=== PATIENT | male | born 1950 | race African-American/Black ===

== ENCOUNTER 2017-09-06 22:15 | Inpatient (IN) | payer MEDICARE, OTHER, MEDICAID ==
[~2017-09-06] VITALS: Ht 182.9 cm; Wt 69.4 kg
[~2017-09-06 22:15] MED LIST: BISO5TAB13 PO; CINA30 PO; DIGO250T4 PO; LOSA25TA3 PO; WARF4TAB39 PO
[2017-09-06 22:30] VITALS: BP 137/80
[2017-09-06 23:00] VITALS: BP 137/80
[2017-09-06] MEDS ORDERED: DEXTROSE 50% WATER 50ML SYRINGE IV PRN (23:00)
[2017-09-06] MEDS ORDERED: NITROGLYCERIN 0.4MG TABLET SL SL PRN (23:00)
[2017-09-06] MEDS ORDERED: NICARDIPINE 100 MG in SODIUM CHLORIDE 0.9% 60 ML IV PRN (23:00)
[2017-09-06] MEDS ORDERED: IPRATROPIUM/ALBUTEROL 0.5-3(2.5)MG/3ML NEB HHN PRN (23:00)
[2017-09-06] MEDS ORDERED: NA PHOS,M-B/NA PHOS,DI-BA ENEMA 118ML PR PRN (23:00)
[2017-09-07] MEDS: DEXAMETHASONE 4MG/ML 1ML VIAL IV SCH ×4 (00:40→17:47)
[2017-09-07] MEDS: BLOOD SUGAR DIAGNOSTIC STRIP TEST SCH ×4 (00:58→17:29)
[2017-09-07] MEDS: INSULIN LISPRO 100 UNITS/ML SUBCUT SCH ×4 (01:00→17:29)
[2017-09-07] MEDS ORDERED: BLOOD SUGAR DIAGNOSTIC STRIP TEST SCH (06:30)
[2017-09-07 06:42] LABS: HEMATOCRIT. 27.9 % (42.0-52.0); HEMOGLOBIN. 9.2 g/dL (14.0-18.0); MEAN CORPUSCULAR HEMOGLOBIN 30.8 pg (28.0-32.0); MEAN CORPUSCULAR VOLUME 92.9 fL (80.0-94.0); MEAN PLATELET VOLUME 10.7 fl (7.4-10.4); PLATELET 243 x1000/uL (130-400); RED CELL DISTRIBUTION WIDTH 15.4 % (11.6-14.6)
[2017-09-07] MEDS: DILTIAZEM HCL 60MG TABLET PO SCH ×3 (07:14→22:00)
[2017-09-07] MEDS: PHENYTOIN SODIUM 100MG/2ML VIAL IV SCH ×3 (07:16→21:58)
[2017-09-07 07:20] LABS: CARBON DIOXIDE 24 mEq/L (21-32); CHLORIDE 101 mEq/L (98-107); PREALBUMIN 29.3 mg/dL (20.0-40.0)
[2017-09-07 08:00] VITALS: BP 116/65
[2017-09-07] MEDS: FAMOTIDINE 20MG/2ML VIAL IV SCH (08:52)
[2017-09-07] MEDS ORDERED: LEVETIRACETAM 500 MG in SODIUM CHLORIDE 0.9% 100 ML IV SCH (09:00)
[2017-09-07] MEDS ORDERED: INSULIN LISPRO 100 UNITS/ML SUBCUT SCH (09:00)
[2017-09-07 20:00] VITALS: BP 114/50
[2017-09-07 20:22] LABS: PLATELET ESTIMATE NORMAL
[2017-09-07] MEDS: CHLORPROMAZINE HCL 25MG/1ML AMP IM PRN (20:53)
[2017-09-07] MEDS ORDERED: VANCOMYCIN 750 MG PREMIX 150 ML IV SCH (21:00)
[2017-09-07] MEDS: LEVETIRACETAM 500MG PREMIX 100 ML IV SCH (21:57)
[2017-09-07] MEDS: ATORVASTATIN CALCIUM 20MG TABLET PO SCH (21:58)
[2017-09-07] MEDS: ASCORBIC ACID 250 MG TABLET PO SCH (21:58)
[2017-09-08] MEDS: DEXAMETHASONE 4MG/ML 1ML VIAL IV SCH ×2 (00:28→06:31)
[2017-09-08] MEDS: BLOOD SUGAR DIAGNOSTIC STRIP TEST SCH ×4 (00:28→17:54)
[2017-09-08] MEDS: DILTIAZEM HCL 60MG TABLET PO SCH ×4 (06:00→17:44)
[2017-09-08] MEDS: INSULIN LISPRO 100 UNITS/ML SUBCUT SCH ×4 (06:00→18:00)
[2017-09-08] MEDS: PHENYTOIN SODIUM 100MG/2ML VIAL IV SCH (06:31)
[2017-09-08 08:00] VITALS: BP 108/48
[2017-09-08] MEDS: ASCORBIC ACID 250 MG TABLET PO SCH ×2 (08:12→21:21)
[2017-09-08] MEDS: LEVETIRACETAM 500MG PREMIX 100 ML IV SCH (08:12)
[2017-09-08] MEDS: ZINC SULFATE 220 MG ( 50 ) CAPSULE PO SCH (08:12)
[2017-09-08] MEDS: FAMOTIDINE 20MG/2ML VIAL IV SCH (08:12)
[2017-09-08 08:50] LABS: INR 1.2; PROTHROMBIN TIME 12.1 sec (9.4-11.6)
[2017-09-08] MEDS: ACETAMINOPHEN 325MG TABLET PO PRN (09:51)
[2017-09-08] MEDS: ONDANSETRON HCL 4MG/2ML VIAL IV PRN (10:38)
[2017-09-08 11:00] VITALS: BP 118/88
[2017-09-08] MEDS ORDERED: BISACODYL 10MG SUPP PR NR (11:46)
[2017-09-08 11:57] LABS: HEMATOCRIT. 26.8 % (42.0-52.0); HEMOGLOBIN. 8.6 g/dL (14.0-18.0); MEAN CORPUSCULAR HEMOGLOBIN 30.8 pg (28.0-32.0); MEAN CORPUSCULAR VOLUME 95.7 fL (80.0-94.0); MEAN PLATELET VOLUME 10.6 fl (7.4-10.4); PLATELET 233 x1000/uL (130-400); RED CELL DISTRIBUTION WIDTH 15.4 % (11.6-14.6)
[2017-09-08 12:16] LABS: AMYLASE 115 IU/L (25-115); CARBON DIOXIDE 23 mEq/L (21-32); CHLORIDE 104 mEq/L (98-107); PHOSPHORUS 4.7 mg/dL (2.5-4.9); TOTAL IRON BINDING CAPACITY 218 ug/dL (250-450)
[2017-09-08 12:54] LABS: NUCLEATED RED BLOOD CELLS 3 /100 WBC; PLATELET ESTIMATE NORMAL
[2017-09-08] MEDS: DEXAMETHASONE 2MG TABLET PO SCH ×2 (13:42→17:44)
[2017-09-08 16:32] LABS: FOLIC ACID (FOLATE) SERUM 3.4 ng/mL (>5.38)
[2017-09-08] MEDS: PHENYTOIN SODIUM EXTENDED 100MG CAPSULE PO SCH ×2 (17:43→21:21)
[2017-09-08] MEDS ORDERED: WARFARIN SODIUM 3MG TABLET PO SCH (18:00)
[2017-09-08 20:58] VITALS: BP 109/40
[2017-09-08 21:05] LABS: CLARITY URINE CLEAR (CLEAR); COLOR URINE YELLOW (YELLOW); GLUCOSE URINE NEGATIVE (NEGATIVE); KETONES URINE TRACE (NEGATIVE); LEUKOCYTE ESTERASE URINE NEGATIVE (NEGATIVE); NITRITE URINE NEGATIVE (NEGATIVE); OCCULT BLOOD URINE 1+ (NEGATIVE); PROTEIN URINE 1+ (NEGATIVE); SPECIFIC GRAVITY URINE 1.016 (1.005-1.030); UROBILINOGEN URINE 0.2 E.U./dL (0.2-1.0)
[2017-09-08] MEDS: ATORVASTATIN CALCIUM 20MG TABLET PO SCH (21:21)
[2017-09-08] MEDS: EPOETIN ALFA 4000UNITS/ML VIAL SUBCUT SCH (21:22)
[2017-09-08] MEDS: LEVETIRACETAM 500MG TABLET PO SCH (21:22)
[2017-09-09] MEDS: BLOOD SUGAR DIAGNOSTIC STRIP TEST SCH ×4 (00:38→17:29)
[2017-09-09] MEDS: DEXAMETHASONE 2MG TABLET PO SCH ×2 (00:39→06:27)
[2017-09-09] MEDS: INSULIN LISPRO 100 UNITS/ML SUBCUT SCH ×4 (00:45→17:29)
[2017-09-09] MEDS: CHLORPROMAZINE HCL 25MG/1ML AMP IM PRN (00:49)
[2017-09-09] MEDS: DILTIAZEM HCL 60MG TABLET PO SCH ×4 (06:00→17:29)
[2017-09-09] MEDS: PHENYTOIN SODIUM EXTENDED 100MG CAPSULE PO SCH (06:27)
[2017-09-09 06:40] LABS: INR 1.2; PROTHROMBIN TIME 12.5 sec (9.4-11.6)
[2017-09-09 07:57] VITALS: BP 103/43
[2017-09-09] MEDS: LEVETIRACETAM 500MG TABLET PO SCH (08:42)
[2017-09-09] MEDS: FOLIC ACID 1MG TABLET PO SCH (08:42)
[2017-09-09] MEDS: ASCORBIC ACID 250 MG TABLET PO SCH ×2 (08:42→21:03)
[2017-09-09] MEDS: FAMOTIDINE 20MG/2ML VIAL IV SCH (08:42)
[2017-09-09] MEDS: ZINC SULFATE 220 MG ( 50 ) CAPSULE PO SCH (08:42)
[2017-09-09] MEDS ORDERED: FOLIC ACID 1MG TABLET PO SCH (11:30)
[2017-09-09] MEDS: DEXAMETHASONE 4MG/ML 1ML VIAL IV SCH ×2 (12:49→18:07)
[2017-09-09] MEDS: ONDANSETRON HCL 4MG/2ML VIAL IV PRN (13:42)
[2017-09-09 20:00] VITALS: BP 124/60
[2017-09-09] MEDS: ATORVASTATIN CALCIUM 20MG TABLET PO SCH (21:02)
[2017-09-09] MEDS: LEVETIRACETAM 250MG TABLET PO SCH (21:03)
[2017-09-09] MEDS: HEPARIN 5000 UNITS/ML VIAL SUBCUT SCH (21:03)
[2017-09-10] MEDS: BLOOD SUGAR DIAGNOSTIC STRIP TEST SCH ×4 (00:17→17:24)
[2017-09-10] MEDS: DEXAMETHASONE 4MG/ML 1ML VIAL IV SCH ×4 (00:17→17:24)
[2017-09-10] MEDS: INSULIN LISPRO 100 UNITS/ML SUBCUT SCH ×4 (00:27→17:30)
[2017-09-10] MEDS: DILTIAZEM HCL 60MG TABLET PO SCH ×3 (06:00→12:28)
[2017-09-10] MEDS: CHLORPROMAZINE HCL 25MG/1ML AMP IM PRN ×3 (06:46→21:57)
[2017-09-10 08:00] VITALS: BP 104/53
[2017-09-10] MEDS: ACETAMINOPHEN 325MG TABLET PO PRN (08:46)
[2017-09-10] MEDS: FAMOTIDINE 20MG/2ML VIAL IV SCH (08:47)
[2017-09-10] MEDS: LEVETIRACETAM 250MG TABLET PO SCH (08:47)
[2017-09-10] MEDS: ASCORBIC ACID 250 MG TABLET PO SCH (08:47)
[2017-09-10] MEDS: HEPARIN 5000 UNITS/ML VIAL SUBCUT SCH (08:47)
[2017-09-10] MEDS: ZINC SULFATE 220 MG ( 50 ) CAPSULE PO SCH (08:47)
[2017-09-10] MEDS: FOLIC ACID 1MG TABLET PO SCH (08:47)
[2017-09-10] MEDS ORDERED: BISACODYL 10MG SUPP PR NR ×2 (15:45→20:00)
[2017-09-10] MEDS: LACTULOSE 20G/30ML UDC PO SCH ×3 (16:03→21:00)
[2017-09-10] MEDS: LIDOCAINE 5% PATCH TOP SCH (16:04)
[2017-09-10 16:16] LABS: HEMATOCRIT. 28.9 % (42.0-52.0); HEMOGLOBIN. 9.4 g/dL (14.0-18.0); MEAN CORPUSCULAR HEMOGLOBIN 30.7 pg (28.0-32.0); PLATELET 238 x1000/uL (130-400); RED BLOOD CELL COUNT 3.04 mill/uL (4.7-6.1); RED CELL DISTRIBUTION WIDTH 15.4 % (11.6-14.6)
[2017-09-10 17:04] LABS: NUCLEATED RED BLOOD CELLS 5 /100 WBC; PLATELET ESTIMATE NORMAL
[2017-09-10] MEDS ORDERED: METHYL SALICYLATE/MENTHOL CREAM 85GM TOP PRN (18:00)
[2017-09-10 20:00] VITALS: BP 146/84
[2017-09-10] MEDS ORDERED: DILTIAZEM HCL 60MG TABLET PO SCH (22:00)
[2017-09-10] MEDS: DILTIAZEM HCL 30MG TABLET PO SCH (22:00)
[2017-09-11] MEDS: ATORVASTATIN CALCIUM 20MG TABLET PO SCH ×2 (00:53→20:49)
[2017-09-11] MEDS: ASCORBIC ACID 250 MG TABLET PO SCH ×3 (00:53→20:49)
[2017-09-11] MEDS: LEVETIRACETAM 250MG TABLET PO SCH ×3 (00:53→20:49)
[2017-09-11] MEDS: DEXAMETHASONE 4MG/ML 1ML VIAL IV SCH ×5 (00:55→23:26)
[2017-09-11] MEDS: INSULIN LISPRO 100 UNITS/ML SUBCUT SCH ×5 (01:05→23:25)
[2017-09-11] MEDS: HEPARIN 5000 UNITS/ML VIAL SUBCUT SCH ×3 (05:31→20:50)
[2017-09-11] MEDS: DILTIAZEM HCL 30MG TABLET PO SCH ×3 (06:00→21:49)
[2017-09-11] MEDS: BLOOD SUGAR DIAGNOSTIC STRIP TEST SCH ×5 (06:49→23:25)
[2017-09-11 07:28] LABS: HEMOGLOBIN. 9.1 g/dL (14.0-18.0); MEAN CORPUSCULAR HEMOGLOBIN 31.9 pg (28.0-32.0); MEAN CORPUSCULAR VOLUME 95.2 fL (80.0-94.0); MEAN PLATELET VOLUME 10.3 fl (7.4-10.4); PLATELET 233 x1000/uL (130-400); RED BLOOD CELL COUNT 2.84 mill/uL (4.7-6.1); RED CELL DISTRIBUTION WIDTH 15.5 % (11.6-14.6)
[2017-09-11 08:29] VITALS: BP 111/53
[2017-09-11] MEDS: ZINC SULFATE 220 MG ( 50 ) CAPSULE PO SCH (08:29)
[2017-09-11] MEDS: FAMOTIDINE 20MG/2ML VIAL IV SCH (08:29)
[2017-09-11] MEDS: FOLIC ACID 1MG TABLET PO SCH (08:29)
[2017-09-11 08:35] LABS: T4 FREE 0.55 ng/dL (0.76-1.46)
[2017-09-11] MEDS: LIDOCAINE 5% PATCH TOP SCH (09:44)
[2017-09-11 13:00] VITALS: BP 119/63
[2017-09-11] MEDS: LACTULOSE 20G/30ML UDC PO SCH ×2 (15:00→20:49)
[2017-09-11 15:37] LABS: PLATELET ESTIMATE NORMAL
[2017-09-11 20:00] VITALS: BP 127/61
[2017-09-11] MEDS: EPOETIN ALFA 4000UNITS/ML VIAL SUBCUT SCH (20:50)
[2017-09-12] MEDS: BLOOD SUGAR DIAGNOSTIC STRIP TEST SCH (05:32)
[2017-09-12] MEDS: INSULIN LISPRO 100 UNITS/ML SUBCUT SCH (05:32)
[2017-09-12] MEDS: DEXAMETHASONE 4MG/ML 1ML VIAL IV SCH (06:05)
[2017-09-12] MEDS: DILTIAZEM HCL 30MG TABLET PO SCH (06:06)
[2017-09-12] MEDS: CHLORPROMAZINE HCL 25MG/1ML AMP IM PRN (06:06)
[2017-09-12] MEDS: LACTULOSE 20G/30ML UDC PO SCH (07:29)
[2017-09-12 08:00] VITALS: BP_SYST 100; BP_SYST 123; BP_DIAS 45; BP_DIAS 62
[2017-09-12 08:07] LABS: T4 FREE 0.56 ng/dL (0.76-1.46)
[2017-09-12] MEDS: HEPARIN 5000 UNITS/ML VIAL SUBCUT SCH (09:41)
[2017-09-12] MEDS: LEVETIRACETAM 250MG TABLET PO SCH (09:41)
[2017-09-12] MEDS: ZINC SULFATE 220 MG ( 50 ) CAPSULE PO SCH (09:42)
[2017-09-12] MEDS: FAMOTIDINE 20MG/2ML VIAL IV SCH (09:42)
[2017-09-12] MEDS: ASCORBIC ACID 250 MG TABLET PO SCH (09:42)
[2017-09-12] MEDS: FOLIC ACID 1MG TABLET PO SCH (09:42)
[2017-09-12] MEDS: LIDOCAINE 5% PATCH TOP SCH (09:44)
[2017-09-12] MEDS ORDERED: DEXAMETHASONE 4MG/ML 1ML VIAL IV SCH (12:00)
[2017-09-12] MEDS ORDERED: AMIODARONE HCL 150 MG in DEXT 5% WATER 100 ML IV SCH (12:15)
[2017-09-12] MEDS ORDERED: AMIODARONE HCL 900 MG in DEXT 5% WATER 500 ML IV SCH (12:15)
[2017-09-12 13:07] LABS: HEMATOCRIT. 30.7 % (42.0-52.0); HEMOGLOBIN. 9.9 g/dL (14.0-18.0); MEAN CORPUSCULAR VOLUME 96.1 fL (80.0-94.0); MEAN PLATELET VOLUME 10.6 fl (7.4-10.4); PLATELET 239 x1000/uL (130-400); RED BLOOD CELL COUNT 3.19 mill/uL (4.7-6.1); RED CELL DISTRIBUTION WIDTH 16.1 % (11.6-14.6)
[2017-09-12 13:11] VITALS: BP 123/62
[2017-09-12 14:05] LABS: PLATELET ESTIMATE NORMAL
[2017-09-12 17:12] LABS: 25-HYDROXY VITAMIN D3 26 ng/mL (.)
[2017-09-13 09:08] LABS: LUTEINIZING HORMONE 8.9 mIU/mL (1.7-8.6); PROLACTIN 21.3 ng/mL (4.0-15.2)
[2017-09-15 04:15] LABS: TESTOSTERONE FREE 16.5 pg/mL (6.6-18.1)
== END 2017-09-12 12:27 | disposition short-term general hospital (02) | DRG 64 ==
LOC: OBSVTOIN 22:15
PROVIDERS: ADMIT Physical Medicine & Rehabilitation Spinal Cord Injury Medicine; ATTEND Internal Medicine
DX: I62.00 Nontraumatic subdural hemorrhage, unspecified (principal); I21.4 Non-ST elevation (NSTEMI) myocardial infarction; G93.5 Compression of brain; G93.6 Cerebral edema; G93.40 Encephalopathy, unspecified; A41.9 Sepsis, unspecified organism; E44.0 Moderate protein-calorie malnutrition; N18.6 End stage renal disease; I13.2 Hypertensive heart and chronic kidney disease with heart failure and with stage 5 chronic kidney disease, or end stage renal disease; I48.92 Unspecified atrial flutter; G81.91 Hemiplegia, unspecified affecting right dominant side; J98.11 Atelectasis; E87.1 Hypo-osmolality and hyponatremia; Z68.1 Body mass index [BMI] 19.9 or less, adult; I62.9 Nontraumatic intracranial hemorrhage, unspecified; R47.01 Aphasia; I48.2 Chronic atrial fibrillation; R13.10 Dysphagia, unspecified; E11.22 Type 2 diabetes mellitus with diabetic chronic kidney disease; E87.5 Hyperkalemia; I49.5 Sick sinus syndrome; I50.9 Heart failure, unspecified; I25.10 Atherosclerotic heart disease of native coronary artery without angina pectoris; G40.909 Epilepsy, unspecified, not intractable, without status epilepticus; D63.1 Anemia in chronic kidney disease; R47.1 Dysarthria and anarthria; R26.9 Unspecified abnormalities of gait and mobility; T38.0X5A Adverse effect of glucocorticoids and synthetic analogues, initial encounter; D17.9 Benign lipomatous neoplasm, unspecified; E03.9 Hypothyroidism, unspecified; E55.9 Vitamin D deficiency, unspecified; E78.00 Pure hypercholesterolemia, unspecified; Z99.2 Dependence on renal dialysis; Z79.01 Long term (current) use of anticoagulants; Z79.4 Long term (current) use of insulin; Z82.49 Family history of ischemic heart disease and other diseases of the circulatory system; Z86.73 Personal history of transient ischemic attack (TIA), and cerebral infarction without residual deficits; Z90.49 Acquired absence of other specified parts of digestive tract
CPT/HCPCS: 36415; 70450; 71010; 73130; 74000; 80048; 80053; 80061; 80185; 81001; 82150; 82270; 82306; 82607; 82728; 82746; 82962; 83001; 83002; 83036; 83540; 83550; 83690; 83735; 84100; 84134; 84146; 84153; 84402; 84403; 84439; 84443; 84481; 84550; 84630; 85007; 85025; 85027; 85610; 87086; 92523; 93005; 93970; 97110; 97112; 97116; 97162; 97167; 97530; 97532; 97535; J0282; J0885; J1100; J1165; J1644; J1815; J1953; J2405; J3230; J3370; J3490; J7030; J7050; J7060; J8540

== ENCOUNTER 2017-09-15 15:15 | Inpatient (IN) | payer MEDICARE, OTHER, MEDICAID ==
[~2017-09-15] VITALS: Ht 185.4 cm; Wt 70.3 kg
[2017-09-15 15:15] VITALS: BP 130/73
[2017-09-15] MEDS ORDERED: NA PHOS,M-B/NA PHOS,DI-BA ENEMA 118ML PR PRN (16:00)
[2017-09-15] MEDS ORDERED: CLONIDINE 0.1MG TABLET PO PRN (16:00)
[2017-09-15] MEDS ORDERED: ACETAMINOPHEN 325MG TABLET PO PRN ×2 (16:00)
[2017-09-15] MEDS ORDERED: ONDANSETRON HCL 4MG/2ML VIAL IV PRN (16:00)
[2017-09-15] MEDS ORDERED: CHLORPROMAZINE HCL 25MG/1ML AMP IM PRN (16:00)
[2017-09-15] MEDS ORDERED: METHYL SALICYLATE/MENTHOL CREAM 85GM TOP PRN (16:00)
[2017-09-15] MEDS ORDERED: IPRATROPIUM/ALBUTEROL 0.5-3(2.5)MG/3ML NEB HHN PRN (16:00)
[2017-09-15] MEDS ORDERED: DEXTROSE 50% WATER 50ML SYRINGE IV PRN (16:00)
[2017-09-15 16:54] VITALS: BP 130/73
[2017-09-15] MEDS: INSULIN LISPRO 100 UNITS/ML SUBCUT SCH ×2 (17:00→20:52)
[2017-09-15] MEDS: BLOOD SUGAR DIAGNOSTIC STRIP TEST SCH ×2 (17:14→20:52)
[2017-09-15] MEDS: DEXAMETHASONE 1MG TABLET PO SCH (17:14)
[2017-09-15] MEDS ORDERED: DEXAMETHASONE 4MG/ML 1ML VIAL IV SCH (18:00)
[2017-09-15 20:00] VITALS: BP 107/52
[2017-09-15] MEDS: ATORVASTATIN CALCIUM 20MG TABLET PO SCH (20:52)
[2017-09-15] MEDS: LEVETIRACETAM 250MG TABLET PO SCH (20:52)
[2017-09-15] MEDS ORDERED: EPOETIN ALFA 4000UNITS/ML VIAL SUBCUT SCH (21:00)
[2017-09-15] MEDS: EPOETIN ALFA 10000UNITS/ML VIAL SUBCUT SCH (21:50)
[2017-09-16] MEDS: LEVOTHYROXINE SODIUM 25MCG TABLET PO SCH (06:32)
[2017-09-16] MEDS: BLOOD SUGAR DIAGNOSTIC STRIP TEST SCH ×4 (06:32→20:40)
[2017-09-16] MEDS ORDERED: NITROGLYCERIN 0.4MG TABLET SL SL PRN (07:00)
[2017-09-16] MEDS: INSULIN LISPRO 100 UNITS/ML SUBCUT SCH ×4 (07:08→20:40)
[2017-09-16 07:28] LABS: BASOPHILS % 0.5 % (0.0-2.0); EOSINOPHILS % 3.8 % (0.0-5.0); HEMATOCRIT. 30.1 % (42.0-52.0); HEMOGLOBIN. 10.2 g/dL (14.0-18.0); LYMPHOCYTES % 7.9 % (20.0-50.0); MEAN CORPUSCULAR HEMOGLOBIN 33.2 pg (28.0-32.0); MEAN CORPUSCULAR VOLUME 97.6 fL (80.0-94.0); MEAN PLATELET VOLUME 10.7 fl (7.4-10.4); MONOCYTES % 8.9 % (2.0-8.0); NEUTROPHILS % 78.9 % (40.0-76.0); PLATELET 166 x1000/uL (130-400); RED BLOOD CELL COUNT 3.08 mill/uL (4.7-6.1); RED CELL DISTRIBUTION WIDTH 20.7 % (11.6-14.6)
[2017-09-16 07:48] LABS: CARBON DIOXIDE 25 mEq/L (21-32); CHLORIDE 104 mEq/L (98-107)
[2017-09-16] MEDS: FOLIC ACID 1MG TABLET PO SCH (08:35)
[2017-09-16] MEDS: DEXAMETHASONE 1MG TABLET PO SCH ×2 (08:35→16:49)
[2017-09-16] MEDS: FAMOTIDINE 20MG/2ML VIAL IV SCH (08:35)
[2017-09-16] MEDS: ASCORBIC ACID 250 MG TABLET PO SCH (08:35)
[2017-09-16] MEDS: ZINC SULFATE 220 MG ( 50 ) CAPSULE PO SCH (08:35)
[2017-09-16] MEDS: LEVETIRACETAM 250MG TABLET PO SCH ×2 (08:35→20:40)
[2017-09-16] MEDS: LIDOCAINE 5% PATCH TOP SCH (08:37)
[2017-09-16 10:19] VITALS: BP 148/85
[2017-09-16 10:35] LABS: PREALBUMIN 35.6 mg/dL (20.0-40.0)
[2017-09-16 20:00] VITALS: BP 135/85
[2017-09-16] MEDS: ATORVASTATIN CALCIUM 20MG TABLET PO SCH (20:39)
[2017-09-17] MEDS: LEVOTHYROXINE SODIUM 25MCG TABLET PO SCH (06:14)
[2017-09-17] MEDS: BLOOD SUGAR DIAGNOSTIC STRIP TEST SCH ×4 (06:14→21:00)
[2017-09-17] MEDS: INSULIN LISPRO 100 UNITS/ML SUBCUT SCH ×4 (07:10→21:00)
[2017-09-17 08:00] VITALS: BP 123/69
[2017-09-17] MEDS: LEVETIRACETAM 250MG TABLET PO SCH ×2 (08:48→22:00)
[2017-09-17] MEDS: ZINC SULFATE 220 MG ( 50 ) CAPSULE PO SCH (08:48)
[2017-09-17] MEDS: ASCORBIC ACID 250 MG TABLET PO SCH (08:48)
[2017-09-17] MEDS: FOLIC ACID 1MG TABLET PO SCH (08:48)
[2017-09-17] MEDS: FAMOTIDINE 20MG/2ML VIAL IV SCH (08:48)
[2017-09-17] MEDS: LIDOCAINE 5% PATCH TOP SCH (08:49)
[2017-09-17] MEDS ORDERED: DEXAMETHASONE 1MG TABLET PO SCH (09:00)
[2017-09-17] MEDS ORDERED: ERGOCALCIFEROL 50000UNITS CAPSULE PO SCH (13:30)
[2017-09-17 20:00] VITALS: BP 133/68
[2017-09-17] MEDS: ATORVASTATIN CALCIUM 20MG TABLET PO SCH (22:00)
[2017-09-18] MEDS: BLOOD SUGAR DIAGNOSTIC STRIP TEST SCH ×4 (06:31→20:56)
[2017-09-18] MEDS: INSULIN LISPRO 100 UNITS/ML SUBCUT SCH ×4 (06:31→21:00)
[2017-09-18] MEDS: LEVOTHYROXINE SODIUM 25MCG TABLET PO SCH (06:41)
[2017-09-18 07:00] VITALS: BP 138/71
[2017-09-18] MEDS: ZINC SULFATE 220 MG ( 50 ) CAPSULE PO SCH (08:23)
[2017-09-18] MEDS: FAMOTIDINE 20MG TABLET PO SCH (08:24)
[2017-09-18] MEDS: ASCORBIC ACID 250 MG TABLET PO SCH (08:24)
[2017-09-18] MEDS: FOLIC ACID 1MG TABLET PO SCH (08:24)
[2017-09-18] MEDS: LEVETIRACETAM 250MG TABLET PO SCH ×2 (08:24→20:56)
[2017-09-18 08:25] LABS: BASOPHILS % 0.5 % (0.0-2.0); EOSINOPHILS % 4.2 % (0.0-5.0); HEMATOCRIT. 30.4 % (42.0-52.0); HEMOGLOBIN. 10.2 g/dL (14.0-18.0); LYMPHOCYTES % 9.6 % (20.0-50.0); MEAN CORPUSCULAR HEMOGLOBIN 32.7 pg (28.0-32.0); MEAN CORPUSCULAR VOLUME 97.7 fL (80.0-94.0); MEAN PLATELET VOLUME 10.5 fl (7.4-10.4); MONOCYTES % 11.1 % (2.0-8.0); NEUTROPHILS % 74.6 % (40.0-76.0); PLATELET 142 x1000/uL (130-400); RED BLOOD CELL COUNT 3.11 mill/uL (4.7-6.1); RED CELL DISTRIBUTION WIDTH 20.1 % (11.6-14.6)
[2017-09-18] MEDS: LIDOCAINE 5% PATCH TOP SCH (08:25)
[2017-09-18 20:00] VITALS: BP 130/64
[2017-09-18] MEDS: ATORVASTATIN CALCIUM 20MG TABLET PO SCH (20:56)
[2017-09-19] MEDS: BLOOD SUGAR DIAGNOSTIC STRIP TEST SCH ×4 (06:18→21:00)
[2017-09-19] MEDS: INSULIN LISPRO 100 UNITS/ML SUBCUT SCH ×4 (06:19→21:00)
[2017-09-19] MEDS: LEVOTHYROXINE SODIUM 25MCG TABLET PO SCH (06:38)
[2017-09-19 08:00] VITALS: BP 127/64
[2017-09-19] MEDS: ZINC SULFATE 220 MG ( 50 ) CAPSULE PO SCH (08:47)
[2017-09-19] MEDS: ASCORBIC ACID 250 MG TABLET PO SCH (08:47)
[2017-09-19] MEDS: LEVETIRACETAM 250MG TABLET PO SCH (08:47)
[2017-09-19] MEDS: FAMOTIDINE 20MG TABLET PO SCH (08:48)
[2017-09-19] MEDS: FOLIC ACID 1MG TABLET PO SCH (08:48)
[2017-09-19] MEDS: LIDOCAINE 5% PATCH TOP SCH (08:49)
[2017-09-19 20:00] VITALS: BP 127/67
[2017-09-20] MEDS: ATORVASTATIN CALCIUM 20MG TABLET PO SCH ×2 (01:15→20:51)
[2017-09-20] MEDS: LEVETIRACETAM 250MG TABLET PO SCH ×3 (01:15→20:51)
[2017-09-20] MEDS: BLOOD SUGAR DIAGNOSTIC STRIP TEST SCH ×4 (06:14→20:51)
[2017-09-20] MEDS: INSULIN LISPRO 100 UNITS/ML SUBCUT SCH ×4 (06:14→20:54)
[2017-09-20] MEDS: LEVOTHYROXINE SODIUM 25MCG TABLET PO SCH (06:23)
[2017-09-20 07:17] LABS: BASOPHILS % 0.8 % (0.0-2.0); EOSINOPHILS % 3.9 % (0.0-5.0); HEMATOCRIT. 31.8 % (42.0-52.0); HEMOGLOBIN. 10.8 g/dL (14.0-18.0); LYMPHOCYTES % 14.4 % (20.0-50.0); MEAN CORPUSCULAR HEMOGLOBIN 32.6 pg (28.0-32.0); MEAN CORPUSCULAR VOLUME 96.2 fL (80.0-94.0); MEAN PLATELET VOLUME 10.8 fl (7.4-10.4); MONOCYTES % 11.8 % (2.0-8.0); NEUTROPHILS % 69.1 % (40.0-76.0); PLATELET 147 x1000/uL (130-400); RED CELL DISTRIBUTION WIDTH 18.6 % (11.6-14.6)
[2017-09-20 08:00] VITALS: BP 120/77
[2017-09-20] MEDS: FOLIC ACID 1MG TABLET PO SCH (08:23)
[2017-09-20] MEDS: ZINC SULFATE 220 MG ( 50 ) CAPSULE PO SCH (08:23)
[2017-09-20] MEDS: FAMOTIDINE 20MG TABLET PO SCH (08:23)
[2017-09-20] MEDS: ASCORBIC ACID 250 MG TABLET PO SCH (08:23)
[2017-09-20] MEDS: LIDOCAINE 5% PATCH TOP SCH (08:24)
[2017-09-20 20:00] VITALS: BP 118/63
[2017-09-21] MEDS: LEVOTHYROXINE SODIUM 25MCG TABLET PO SCH (06:18)
[2017-09-21] MEDS: BLOOD SUGAR DIAGNOSTIC STRIP TEST SCH ×3 (06:18→16:53)
[2017-09-21] MEDS: INSULIN LISPRO 100 UNITS/ML SUBCUT SCH ×3 (06:39→16:53)
[2017-09-21 08:00] VITALS: BP 113/66
[2017-09-21 08:17] LABS: PREALBUMIN 26.4 mg/dL (20.0-40.0)
[2017-09-21] MEDS: LEVETIRACETAM 250MG TABLET PO SCH ×2 (08:37→21:15)
[2017-09-21] MEDS: ASCORBIC ACID 250 MG TABLET PO SCH (08:37)
[2017-09-21] MEDS: FOLIC ACID 1MG TABLET PO SCH (08:37)
[2017-09-21] MEDS: FAMOTIDINE 20MG TABLET PO SCH (08:37)
[2017-09-21] MEDS: ZINC SULFATE 220 MG ( 50 ) CAPSULE PO SCH (08:37)
[2017-09-21] MEDS: LIDOCAINE 5% PATCH TOP SCH (08:38)
[2017-09-21] MEDS: LACTULOSE 20G/30ML UDC PO SCH (10:57)
[2017-09-21 20:00] VITALS: BP 119/65
[2017-09-21] MEDS: ATORVASTATIN CALCIUM 20MG TABLET PO SCH (21:15)
[2017-09-22] MEDS: LEVOTHYROXINE SODIUM 25MCG TABLET PO SCH (06:26)
[2017-09-22 08:15] VITALS: BP 143/75
[2017-09-22] MEDS: FOLIC ACID 1MG TABLET PO SCH (08:26)
[2017-09-22] MEDS: ZINC SULFATE 220 MG ( 50 ) CAPSULE PO SCH (08:26)
[2017-09-22] MEDS: LEVETIRACETAM 250MG TABLET PO SCH ×2 (08:26→21:15)
[2017-09-22] MEDS: ASCORBIC ACID 250 MG TABLET PO SCH (08:26)
[2017-09-22] MEDS: LACTULOSE 20G/30ML UDC PO SCH (08:27)
[2017-09-22] MEDS: LIDOCAINE 5% PATCH TOP SCH (08:27)
[2017-09-22 08:32] LABS: T4 FREE 0.87 ng/dL (0.76-1.46)
[2017-09-22 20:00] VITALS: BP 120/70
[2017-09-22] MEDS: EPOETIN ALFA 10000UNITS/ML VIAL SUBCUT SCH (21:00)
[2017-09-22] MEDS: ATORVASTATIN CALCIUM 20MG TABLET PO SCH (21:15)
[2017-09-23] MEDS: LEVOTHYROXINE SODIUM 25MCG TABLET PO SCH (06:45)
[2017-09-23 07:41] LABS: AMYLASE 206 IU/L (25-115)
[2017-09-23 08:00] VITALS: BP 118/69
[2017-09-23] MEDS: LACTULOSE 20G/30ML UDC PO SCH (09:00)
[2017-09-23] MEDS: LEVETIRACETAM 250MG TABLET PO SCH (09:23)
[2017-09-23] MEDS: ASCORBIC ACID 250 MG TABLET PO SCH (09:23)
[2017-09-23] MEDS: ZINC SULFATE 220 MG ( 50 ) CAPSULE PO SCH (09:23)
[2017-09-23] MEDS: FOLIC ACID 1MG TABLET PO SCH (09:23)
[2017-09-23] MEDS: LIDOCAINE 5% PATCH TOP SCH (09:24)
[2017-09-23 13:35] VITALS: BP 118/69
== END 2017-09-23 14:45 | disposition home or self-care (01) | DRG 64 ==
PROVIDERS: ADMIT Physical Medicine & Rehabilitation Spinal Cord Injury Medicine; ATTEND Internal Medicine
PROC: 5A1D70Z Performance of Urinary Filtration, Intermittent, Less than 6 Hours Per Day (ICD-10-PCS; 2017-09-16)
PROC: 5A1D70Z Performance of Urinary Filtration, Intermittent, Less than 6 Hours Per Day (ICD-10-PCS; 2017-09-17)
PROC: 5A1D70Z Performance of Urinary Filtration, Intermittent, Less than 6 Hours Per Day (ICD-10-PCS; 2017-09-18)
PROC: 5A1D70Z Performance of Urinary Filtration, Intermittent, Less than 6 Hours Per Day (ICD-10-PCS; 2017-09-20)
PROC: 5A1D70Z Performance of Urinary Filtration, Intermittent, Less than 6 Hours Per Day (ICD-10-PCS; principal; 2017-09-22)
DX: I62.01 Nontraumatic acute subdural hemorrhage (principal); I21.4 Non-ST elevation (NSTEMI) myocardial infarction; E43 Unspecified severe protein-calorie malnutrition; G93.6 Cerebral edema; K56.600 Partial intestinal obstruction, unspecified as to cause; E11.22 Type 2 diabetes mellitus with diabetic chronic kidney disease; K85.90 Acute pancreatitis without necrosis or infection, unspecified; I12.0 Hypertensive chronic kidney disease with stage 5 chronic kidney disease or end stage renal disease; I48.2 Chronic atrial fibrillation; I48.0 Paroxysmal atrial fibrillation; I47.1 Supraventricular tachycardia; N18.6 End stage renal disease; I48.92 Unspecified atrial flutter; G81.91 Hemiplegia, unspecified affecting right dominant side; I31.3 Pericardial effusion (noninflammatory); E22.1 Hyperprolactinemia; I60.9 Nontraumatic subarachnoid hemorrhage, unspecified; I49.5 Sick sinus syndrome; R13.10 Dysphagia, unspecified; E78.00 Pure hypercholesterolemia, unspecified; E03.9 Hypothyroidism, unspecified; D63.1 Anemia in chronic kidney disease; T38.0X5A Adverse effect of glucocorticoids and synthetic analogues, initial encounter; G40.909 Epilepsy, unspecified, not intractable, without status epilepticus; E55.9 Vitamin D deficiency, unspecified; D53.9 Nutritional anemia, unspecified; R47.1 Dysarthria and anarthria; R26.9 Unspecified abnormalities of gait and mobility; R53.81 Other malaise; F06.31 Mood disorder due to known physiological condition with depressive features; F06.8 Other specified mental disorders due to known physiological condition; Z99.2 Dependence on renal dialysis; Z82.49 Family history of ischemic heart disease and other diseases of the circulatory system; Z90.49 Acquired absence of other specified parts of digestive tract; Z79.899 Other long term (current) drug therapy
CPT/HCPCS: 36415; 74000; 74176; 80048; 80053; 82150; 82962; 83690; 84134; 84439; 84443; 85025; 92523; 93970; 97110; 97112; 97116; 97162; 97167; 97530; 97532; 97535; J0885; J3490; J7030; J8540

== ENCOUNTER 2017-09-26 10:16 | Emergency (ER) | payer MEDICARE, OTHER, MEDICAID ==
[~2017-09-26] VITALS: Ht 182.9 cm; Wt 75.0 kg
[2017-09-26 11:25] LABS: BASOPHILS % 1.1 % (0.0-2.0); EOSINOPHILS % 8.6 % (0.0-5.0); HEMATOCRIT. 29.5 % (42.0-52.0); HEMOGLOBIN. 9.6 g/dL (14.0-18.0); LYMPHOCYTES % 16.3 % (20.0-50.0); MEAN CORPUSCULAR HEMOGLOBIN 31.1 pg (28.0-32.0); MEAN CORPUSCULAR VOLUME 95.5 fL (80.0-94.0); MEAN PLATELET VOLUME 9.1 fl (7.4-10.4); MONOCYTES % 7.3 % (2.0-8.0); NEUTROPHILS % 66.7 % (40.0-76.0); PLATELET 232 x1000/uL (130-400); RED BLOOD CELL COUNT 3.09 mill/uL (4.7-6.1); RED CELL DISTRIBUTION WIDTH 17.9 % (11.6-14.6)
[2017-09-26] MEDS: SODIUM CHLORIDE 0.9% 500 ML IV ONE (11:53)
[2017-09-26] MEDS: MORPHINE SULFATE 4 MG/ML CPJ (NOT FOR IM USE) IV STA (12:03)
[2017-09-26] MEDS: ONDANSETRON HCL 4MG/2ML VIAL IV STA (12:03)
[2017-09-26 12:07] LABS: PARTIAL THROMBOPLASTIN TIME 29.1 sec (23.4-31.0); PROTHROMBIN TIME 10.7 sec (9.4-11.6)
[2017-09-26] MEDS: ADENOSINE 3 MG/ML 2ML VIAL IV ONE (12:10)
[2017-09-26] MEDS: DILTIAZEM HCL 5MG/ML 5ML VIAL IV ONE (12:35)
[2017-09-26] MEDS: HYDROMORPHONE HCL/PF 2MG/ML CPJ IV ONE ×2 (13:07→15:20)
[2017-09-26 15:38] VITALS: BP 138/87
== END 2017-09-26 16:02 | disposition short-term general hospital (02) ==
LOC: ER 10:25 → CANBEDREQ 17:49
DX: T82.838A Hemorrhage due to vascular prosthetic devices, implants and grafts, initial encounter (principal); N18.6 End stage renal disease; I49.1 Atrial premature depolarization; I48.92 Unspecified atrial flutter; I47.1 Supraventricular tachycardia; Y84.1 Kidney dialysis as the cause of abnormal reaction of the patient, or of later complication, without mention of misadventure at the time of the procedure; Z99.2 Dependence on renal dialysis; Z98.890 Other specified postprocedural states
CPT/HCPCS: 36415; 71010; 80048; 84484; 85025; 85610; 85730; 86850; 86900; 86901; 93005; 96361; 96374; 96375; 96376; 99291; J0153; J1170; J2270; J2405; J3490; J7040